=== PATIENT | male | born 1945 ===

== ENCOUNTER 2018-01-19 12:14 | Emergency (ER) | payer MEDICARE, MEDICAID ==
[2018-01-19] MEDS ORDERED: NS 0.9% 1000 ML* 2,000 ML IV ONE (12:25)
--- NOTE | 2018-01-19 12:33 | ED ---
Head Injury - HPI Summary HPI Summary: This is dm [facility] documenting for attending Chencho Conde MD. This patient is a 72 year old M BIBA with a chief complaint of unwitnessed fall that occurred just MEDICAL RESEARCH TECH. Patient reports extreme thirst, erythematous head abrasion, and diarrhea. Patient denies CP and abd pain. Pt lives at [facility] and the aides there say he has been sick for the last week. Pt hit his head during the fall this morning. HPI limited due to AMS, level 5 caveat. - History Of Current Complaint Stated Complaint: FALL/HEAD INJURY Time Seen by Provider: 01/19/18 12:21 Hx Obtained From: Patient, Family/Professional Housing Consultant - longterm staff, not present during exam Hx From Patient Unobtainable Due To: Altered Mental Status Mechanism Of Injury: Fall From A Standing Position Onset/Duration: Started Hours Ago Location of Head Injury: Frontal Location: Discrete At: - forehead - Allergies/Home Medications Allergies/Adverse Reactions: Allergies Allergy/AdvReac Type Severity Reaction Status Date / Time Butyrophenones Allergy Unknown Verified 01/19/18 13:42 Reaction Details divalproex sodium Allergy Unknown Verified 01/19/18 13:42 Reaction Details risperidone Allergy Unknown Verified 01/19/18 13:42 Reaction Details Home Medications: Home Medications Acetaminophen [Acetaminophen Extra Strength] 500 mg PO BID 01/19/18 [History Confirmed 01/19/18] Gabapentin CAP(*) [Neurontin 100 mg CAP(*)] 200 mg PO QAM 01/19/18 [History Confirmed 01/19/18] Insulin Glargine (Nf) [Toujeo Solostar Pen (NF)] 12 unit SUBCUT BEDTIME [History Confirmed 01/19/18] Insulin LISPRO* [HumaLOG*] 8 units SUBCUT 1300 01/19/18 [History Confirmed 01/19] Insulin LISPRO* [HumaLOG*] 14 units SUBCUT 0800 01/19/18 [History Confirmed 09/03] Insulin LISPRO* [HumaLOG*] 14 units SUBCUT 1800 01/19/18 [History Confirmed 09/03] Lisinopril TAB* [Prinivil TAB*] 2.5 mg PO QAM 01/19/18 [History Confirmed ] Mirtazapine TAB* [Remeron TAB*] 15 mg PO BEDTIME 01/19/18 [History Confirmed 09/03] Quetiapine Fumarate [Quetiapine Fumarate ER] 150 mg PO 1200 01/19/18 [History Confirmed 01/19/18] Venlafaxine EXT RELEASE CAP* [Effexor Xr CAP*] 37.5 mg PO 0900 01/19/18 [ History Confirmed 01/19/18] Venlafaxine EXT RELEASE CAP* [Effexor Xr CAP*] 75 mg PO 0900 01/19/18 [History Confirmed 01/19/18] levETIRAcetam [Keppra] 250 mg PO BID 01/19/18 [History Confirmed 01/19/18] metFORMIN* [Glucophage 850 MG TAB *] 850 mg PO BID 01/19/18 [History Confirmed 01/19/18] PMH/Surg Hx/FS Hx/Imm Hx History: Denies: Hx Dialysis Opthamlomology History: Denies: Hx Legally Blind - Family History Known Family History: Positive: Unknown - Social History Alcohol Use: hx alcoholism Substance Use Type: Reports: None Smoking Status (MU): Unknown if Ever Smoked Review of Systems - ROS Summary Review of Systems Summary: ROS limited due to AMS, level 5 caveat Negative: Chest Pain Positive: Diarrhea. Negative: Abdominal Pain Positive: Other - head abrasion, forehead All Other Systems Reviewed And Are Negative: No Physical Exam - Summary Physical Exam Summary: Appearance: Well-appearing, Well-nourished, lying in bed comfortably. Skin: Warm, dry, no obvious rash Eyes: sclera anicteric, no conjunctival pallor ENT: mucous membranes moist, pharynx appears normal Neck: Supple, nontender Respiratory: Clear to auscultation, no signs of respiratory distress Cardiovascular: Normal S1, S2. No murmurs. Normal distal pulses in tibial and radial bilaterally. Abdomen: Soft, nontender, normal active bowel sounds present Musculoskeletal: Normal, Strength/ROM Intact. S/p cranial removal of skull bone. Neurological: awake and alert, mentation is slow and somewhat limited. Able to answer questions and follow simple commands. Denies any complaints. Psychiatric: affect is normal, does not appear anxious or depressed GCS: 15 Triage Information Reviewed: Yes Vital Signs Reviewed: Yes Diagnostics - Laboratory Result Diagrams: 01/19/18 13:20 01/19/18 13:20 Lab Statement: Any lab studies that have been ordered have been reviewed, and results considered in the medical decision making process. - CT Brain CT Interpretation Completed By: Radiologist - 1. NO ACUTE INTRACRANIAL PATHOLOGY. 2. DIFFUSE INVOLUTIONAL CHANGE WITH CHRONIC SMALL VESSEL ISCHEMIC CHANGES. 3. STABLE POST SURGICAL CHANGE ED Physician has reviewed this report - EKG 12:31 Cardiac Rate: NL EKG Rhythm: Sinus Rhythm - 87 EKG Interpretation: P waves, QRS complex, and T waves WNL. No ischemic changes. 15:23 Cardiac Rate: NL EKG Rhythm: Sinus Rhythm - 87 bpm EKG Interpretation: No QRS widening or other signs of hyperkalemia Re-Evaluation - Re-Evaluation First Eval Re-Evaluation Time: 12:30 Comment: Discussed pt with an employee at [facility]. Pt is known to have dementia and slurred speech. Pt has been ill for several days with diarrhea, nausea, and vomiting. They performed a c diff and KUB, which were both negative. Head Injury Course/Dx - Diagnoses Provider Diagnoses: Acute renal failure, Hyperkalemia, Severe dehydration, Closed head injury - Physician Notifications Reason For Transfer[place] [facility] [place] - Critical Care Time Critical Care Time: 30-74 min - 35 minutes of critical care time spent arranging transfer, discussing the case with our local physicians, and treating life-threatening hyperkalemia. Discharge - Sign-Out/Discharge Documenting (check all that apply): Patient Departure - Discharge Plan Condition: Critical Disposition: TRANS HIGHER LVL OF CARE FAC Referrals: No Primary Care Phys,NOPCP [Primary Care Provider] - - Billing Disposition and Condition Condition: CRITICAL Disposition: Trans Higher Lvl of Care Fac
--- NOTE | 2018-01-19 13:13 | RAD ---
HISTORY: fall,head trauma, past h/o brain surgery COMPARISONS: February 17, 2014 TECHNIQUE: Multiple contiguous axial CT scans were obtained of the head without intravenous contrast. FINDINGS: HEMORRHAGE/INFARCT: There is no hemorrhage or acute infarct. MASSES/SHIFT: There is no mass or shift. EXTRA-AXIAL SPACES: There are no extra-axial fluid collections. SULCI AND VENTRICLES: There is stable ex vacuo dilatation of the right lateral ventricle. Elsewhere, there is diffuse and proportional enlargement of the sulci and ventricles. CEREBRUM: There is stable hypoattenuation of the periventricular white matter. BRAINSTEM: There are no focal parenchymal abnormalities. CEREBELLUM: There are no focal parenchymal abnormalities. VESSELS: The vessels are grossly normal. PARANASAL SINUSES: The paranasal sinuses are clear. ORBITS: The orbits are unremarkable. BONES AND SOFT TISSUE: The patient is status post right parietal craniectomy. OTHER: None IMPRESSION: 1. NO ACUTE INTRACRANIAL PATHOLOGY. 2. DIFFUSE INVOLUTIONAL CHANGE WITH CHRONIC SMALL VESSEL ISCHEMIC CHANGES. 3. STABLE POST SURGICAL CHANGE
[2018-01-19 13:33] LABS: ABS Basophils 0 10^3/ul (0-0.2); ABS Eosinophils 0 10^3/ul (0-0.6); ABS Lymphocytes 0.8 10^3/ul (1.0-4.8); ABS Monocytes 0.6 10^3/ul (0-0.8); ABS Neutrophils 14.5 10^3/ul (1.5-7.7); ABS Nucleated RBC 0 10^3/ul; Eosinophil % 0.1 % (0-6); Hematocrit 26 % (42-52); Hemoglobin 8.9 g/dl (14.0-18.0); Lymphocyte % 5.2 % (25-47); Mean Corpuscular HGB Conc 34 g/dl (31-36); Mean Corpuscular Hemoglobin 30 pg (27-31); Mean Corpuscular Volume 89 fL (80-94); Mean Platelet Volume 8.8 um3 (7.4-10.4); Nucleated Red Blood Cells % 0; Platelet Count 141 10^3/ul (150-450); Red Blood Count 2.97 10^6/ul (4.00-5.40); Red Cell Distribution Width 14 % (10.5-15); White Blood Count 15.9 10^3/ul (3.5-10.8)
[2018-01-19 13:35] LABS: INR 1.09 (0.77-1.02)
[2018-01-19 13:51] LABS: EGFR Non-African American 5.4 (>60)
[2018-01-19] MEDS ORDERED: Insulin REGULAR(*) 1 UNITS UNIT IV PUSH ONE (14:10)
[2018-01-19] MEDS ORDERED: Sodium Polystyrene ORAL.SOL* 15 GM/60 ML BTL PO ONE (14:11)
[2018-01-19] MEDS ORDERED: Dextrose 50% Syringe 50 ML* 25 GM/50 ML SYRINGE IV PUSH ONE (14:11)
[2018-01-19 15:23] LABS: Urine Appearance Cloudy; Urine Blood Negative (Negative); Urine Color Yellow; Urine Ketones Negative (Negative); Urine Protein Negative (Negative); Urine Specific Gravity 1.009 (1.010-1.030); Urine Urobilinogen Negative (Negative)
[2018-01-19 16:34] VITALS: BP 87/42
== END 2018-01-19 16:54 | disposition short-term general hospital (02) ==
LOC: ED 12:14
DX: N17.9 Acute kidney failure, unspecified (principal); E87.5 Hyperkalemia; E86.0 Dehydration; F03.90 Unspecified dementia, unspecified severity, without behavioral disturbance, psychotic disturbance, mood disturbance, and anxiety; R47.81 Slurred speech; R19.7 Diarrhea, unspecified; R11.2 Nausea with vomiting, unspecified; S09.90XA Unspecified injury of head, initial encounter; W19.XXXA Unspecified fall, initial encounter; Y92.129 Unspecified place in nursing home as the place of occurrence of the external cause; Z88.8 Allergy status to other drugs, medicaments and biological substances
CPT/HCPCS: 36415; 70450; 80053; 81003; 83605; 85025; 85610; 93005; 96361; 96374; 96375; 99285; A9270-GY